=== PATIENT | male | born 1985 | race Caucasian/White ===

== ENCOUNTER 2019-11-14 10:44 | Emergency (ER) | payer BC ==
[~2019-11-14] VITALS: Ht 165.1 cm; Wt 63.5 kg
[2019-11-14 11:27] VITALS: Ht 165.1 cm; Wt 63.5 kg
[2019-11-14 12:35] VITALS: BP 136/108
== END 2019-11-14 12:35 | disposition home or self-care (01) ==
LOC: ED 10:44
DX: J02.9 Acute pharyngitis, unspecified (principal); Z20.828 Contact with and (suspected) exposure to other viral communicable diseases

== ENCOUNTER 2019-11-29 16:36 | Inpatient (IN) | payer BC ==
[~2019-11-29] VITALS: Ht 172.7 cm; Wt 63.0 kg
[2019-11-29 16:36] VITALS: Ht 172.7 cm; Wt 63.0 kg
--- NOTE | 2019-11-29 16:40 | NUR ---
PT BIB AMBULANCE WITH [facility] 4 FOR OVERDOSE ON GHB. 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 FRIEND CALLED 911 AND PT FOUND UNRESPONSIVE. PT GIVEN 6MG NARCAN BY EMS WITHOUT RESOLVE. UPON ARRIVAL EMS CLAIMS PT HAS METH USE HISTORY. BS PER EMS 124. UPON ARRIVAL TO ED PT IS NON RESPONSIVE WITH RR APPROX 40 AND VOMITING. HX OF HIV.
--- NOTE | 2019-11-29 16:42 | NUR ---
DR LAURA AT BEDSIDE FOR INTUBATION.
--- NOTE | 2019-11-29 16:45 | NUR ---
INTUBATION SUCCESFFUL. 23 CM AT LIP AND 8.0 MOSOTHO. POSITIVE COLOR CHANGE
--- NOTE | 2019-11-29 16:45 | NUR ---
ISAAC 16F INSERTED WITH CLEAR YELLOW URINE. R.T. AT BEDSIDE
--- NOTE | 2019-11-29 16:50 | NUR ---
APPLIED SOFT WRIST RESTRAINTS TO BUE'S. +PMSC BILATERALLY.
--- NOTE | 2019-11-29 17:01 | NUR ---
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 SHE SAID DUE TO POSSIBLE SELF HARM ATTEMPT TO CHECK ALCHOL TYELNOL AND MONITOR FOR ANY SIGNS OF COINGESTION. WILL ATTEMPT TO CALL VLAD BACK WITH UPDATES LATER
--- NOTE | 2019-11-29 17:05 | NUR ---
PT RETURNED FROM CT SCAN. CONNECTED TO WEED CUTTER
[2019-11-29 17:17] VITALS: BP 201/129
--- NOTE | 2019-11-29 17:23 | NUR ---
LAB AT BEDSIDE FOR BLOOD DRAW
[2019-11-29 17:30] LABS: microscopic required? NO
--- NOTE | 2019-11-29 17:46 | NUR ---
PT TOLERATING WELL CURRENT VENT SETIINGS AND SEDATION
[2019-11-29 17:48] LABS: BASOPHIL % 0.5 % (0-2); PLATELET COUNT 263 x10^3mcL (130-400)
--- NOTE | 2019-11-29 18:01 | NUR ---
PT ON GURNEY SUPINE. BED RAILS UP AND BED ON LOW POSITION. ON FULL CM AND CLOSELY MONITORING THE PT.
[2019-11-29 18:03] LABS: UA SPECIFIC GRAVITY 1.025 (1.005-1.035); urine erythrocyte NEGATIVE (NEGATIVE)
[2019-11-29 18:07] VITALS: BP 179/125
[2019-11-29 18:32] LABS: AMPHETAMINE QUAL UR POSITIVE (See below)
--- NOTE | 2019-11-29 18:36 | NUR ---
PT TOLERATING VENTILATORY AND PROPOFOL. NO SIGNS OF DISTRESS NOTED. WILL CONT TO MONITOR AND TITRATE NEEDED.
[2019-11-29 18:54] LABS: CARBON DIOXIDE 20.1 mmol/L (21-32); CHLORIDE SERUM 101 mmol/L (98-107); CREATININE SERUM 1.3 mg/dL (0.7-1.3); GFR1 > 60 mL/min; GLUCOSE SERUM 124 mg/dL (74-106); POTASSIUM SERUM 3.5 mmol/L (3.5-5.1); SODIUM SERUM 140 mmol/L (136-145)
--- NOTE | 2019-11-29 18:54 | NUR ---
600ML DRAINED FROM ISAAC. CLEAR AND YELLOW
--- NOTE | 2019-11-29 18:56 | NUR ---
PT JERKED HEAD OFF GURNEY NOTED. ATTEMPTED TO AROUSE HIM WITH VERBAL/PAINFUL STIMULI BUT NO RESPONSE. WILL TITRATE BY 10MCG/KG/MIN FOR COMFORT.
[2019-11-29 18:58] LABS: ALKALINE PHOSPHATASE 98 U/L (46-116); ALT/SGPT 21 U/L (16-63); AST/SGOT 21 U/L (15-37); BILIRUBIN TOTAL 0.2 mg/dL (0.20-1.00)
--- NOTE | 2019-11-29 19:00 | NUR ---
RECEIVED REPORT FROM ROGER HAQUE AND JOSE G HAQUE, I WILL ASSUME CARE OF PT AT THIS TIME.
--- NOTE | 2019-11-29 19:11 | NUR ---
PT NOTED WITH EYES CLOSED, PT ON VENT, ON CM, VSS. PT RECEIVING IV PROPOFOL, SEE EMAR FOR DETAILS. PT ON BILAT SOFT WRIST RESTRAINTS, SKIN INTACT, +CMS. PT INTUBATED AND OG TUBE IN PLACE. PT ON COVID-19 PRECAUTIONS, USED APPROPRIATE PPE. WILL CONTINUE TO MONITOR PT.
--- NOTE | 2019-11-29 20:02 | NUR ---
VLAD FROM POISON CONTROL CALLED TO CHECK VS AND CHANGES TO PT. SHE STATED WE CAN CALL AT ANYTIME IF WE HAVE ANY FURTHER QUESTIONS
--- NOTE | 2019-11-29 20:06 | NUR ---
NOTICED THAT PROPOFOL WAS RUNNING WITH A WEIGHT OF 130KG INSTEAD OF 60KG, CHANGED THE WEIGHT ON THE PUMP THAT WAS SET BY PREVIOUS AM RN. ISABEL OLIVO NOTIFIED WELL . STATED TO MONITOR VS. PT ON CM, VSS.
[2019-11-29 20:24] VITALS: BP 215/135
--- NOTE | 2019-11-29 20:26 | NUR ---
RT AT BEDSIDE
--- NOTE | 2019-11-29 20:30 | NUR ---
INCRESED TO 30MCG/KG/MIN ON PROPOFOL
--- NOTE | 2019-11-29 20:36 | NUR ---
PT NOTED JERKING, AND BP ELEVATED, CALLED RESIDENT RUBBER BELT SPLICER AND HE STATED HE WILL BE DOWN TO SEE THE PT SOON.
--- NOTE | 2019-11-29 20:55 | NUR ---
PT JERKING ARMS AND NOTED ATTEMPTING TO BITE TUBE, INCREASED PROPOFOL TO 40MCG/KG/MIN AT THIS TIME.
--- NOTE | 2019-11-29 20:57 | NUR ---
RESIDENT AT [facility]
--- NOTE | 2019-11-29 21:02 | NUR ---
ADVANCED OG TUBE ABOUT 10CM, RESIDENT JASMYN NOTIFIED TO ORDER NEW CHEST XRAY FOR PLACEMENT VERIFCATION.
--- NOTE | 2019-11-29 21:06 | NUR ---
PT STILL JERKING, RESIDENT NOTED PT IS "FIGHTING THE TUBE" INCREASE PROPOFOL TO 50 MCG/KG/MIN ACCORDING TO PROTOCOL, SEE EMAR FOR DETAILS. PER RESIDENT, NO NEED FOR BP MEDICATION AT THIS TIME.
--- NOTE | 2019-11-29 21:10 | NUR ---
RT AT BEDSIDE
--- NOTE | 2019-11-29 21:35 | NUR ---
SPOKE WITH AUDREY ABURTO FOR VERSED DRIP TO BEGIN PER PROTOCOL
--- NOTE | 2019-11-29 21:58 | NUR ---
BEGAN 2ND BOTTLE OF PROPOFOL, 1000MG/100ML AT 50MCG/KG/MIN WITH A WEIGHT OF 60KG.
--- NOTE | 2019-11-29 21:59 | NUR ---
PER PHARMACIST, HE WILL BE HERE WITHIN 30 MINS
[2019-11-29 22:28] VITALS: BP 135/89
--- NOTE | 2019-11-29 23:10 | NUR ---
FENTANYL 1MCG/KG/MIN BEGAN, SEE EMAR FOR TITRATION DETAILS. VERSED 1MG/HR BEGAN, SEE EMAR FRO TITRATION DETAILS.
--- NOTE | 2019-11-29 23:10 | NUR ---
FENTANYL 1MCG/KG/HR BEGAN, SEE EMAR FOR TITRATING DETAILS. VERSED 1MG/HR BEGAN, SEE EMAR FOR TITRATING DETAILS.
--- NOTE | 2019-11-29 23:25 | NUR ---
DECRESED PROPOFOL TO 45MCG/KG/MIN
--- NOTE | 2019-11-29 23:35 | NUR ---
DECREASED PROPOFOL TO 40MCG/KG/MIN
[2019-11-30] VITALS (14 sets, daily range): BP systolic 90–113; BP diastolic 54–77
[2019-11-30 00:03] LABS: MAGNESIUM 2.5 mg/dL (1.8-2.4); PHOSPHOROUS 4.8 mg/dL (2.5-4.9)
--- NOTE | 2019-11-30 00:20 | NUR ---
UPON REVIEWING MEDICATIONS, NOTICED VERSED WAS RUNNING AT 1MG/KG/HR NOT THE ORDERED DOSE OF 1MG/HR. MEDICTAION STOPPED, DR VINES MADE AWARE, PER MD VINES MONITOR VS AT THIS TIME AND HOLD VERSED MEDICATION FOR 12 HRS. PT ON CM, VSS.
--- NOTE | 2019-11-30 00:32 | NUR ---
MD VINES AT [facility] ASSESSING PT AT THIS TIME.
--- NOTE | 2019-11-30 00:46 | NUR ---
PT RESTING COMFRTABLY, ON CM, VSS. WILL CONTINUE TO MONITOR PT.
--- NOTE | 2019-11-30 01:32 | NUR ---
PT MEDICATED WITH ZOSYN PER ORDER. SEE EMAR. PT REMAINS IN SUPINE POSITION, ON FULL ARM MAKER, ON VENTILATOR.
--- NOTE | 2019-11-30 02:00 | NUR ---
DECREASED PROPOFOL TO 35MCG/KG/MIN, PT RESTING COMFORTABLY, NO S/S OF DISTRESS AT HTIS TIME.
--- NOTE | 2019-11-30 02:20 | NUR ---
DECREASED PROPOFOL TO 30MCG/KG/MIN. PT RESTING WITH NO S/S OF DISTRESS. PT CONTINUES TO BE ON CM AND VENTILATOR.
--- NOTE | 2019-11-30 02:30 | NUR ---
EMPTIED URINAL BAG, 700 ML SINCE 1899 YETSERDAY. CLEAR YELLOW.
--- NOTE | 2019-11-30 02:40 | NUR ---
DECREASED PROPOFOL TO 25MCG/KG/MIN ACCORDING TO PROTOCOL. PT TOLERATING WELL. PT ON CM, VSS. NO S/S OF DISTRESS. PT RESTING COMFORTABLY
--- NOTE | 2019-11-30 02:47 | NUR ---
NOTIFIED MD COBURN OF T 100.8, HE STATED TO CONTINUE TO MONITOR VS. NO NEW ORDERS AT THIS TIME.
--- NOTE | 2019-11-30 03:51 | NUR ---
T 100.[address]
--- NOTE | 2019-11-30 04:01 | NUR ---
PT RESTING COMFORTABLY, ON CM, VSS. ON VENTILATOR. WILL CONTINUE TO MONITOR PT.
--- NOTE | 2019-11-30 04:30 | NUR ---
FENTANYL AT 2MCG/KG/HR PROPOFOL 30MCG/KG/MIN
--- NOTE | 2019-11-30 05:12 | NUR ---
T 99.7, COOLING MEASURES STILL IN PLACE
--- NOTE | 2019-11-30 05:40 | NUR ---
DECREASED PROPOFOL TO 25MCG/KG/MIN, PT ON CM, VSS.
--- NOTE | 2019-11-30 05:50 | NUR ---
DECREASED PROPOFOL TO 2OMCG/KG/MIN, VSS. PT TOLERATING WELL AT THIS TIME.
--- NOTE | 2019-11-30 06:03 | NUR ---
PT RESTING COMFORTABLY, ON CM, VSS. FENTANYL RUNNING AT 2MCG/KG/HR AND PROPOFOL RUNNING AT 20MCG/KG/MIN AT THIS TIME. WILL CONTINYE TO MONITOR PT.
--- NOTE | 2019-11-30 06:56 | NUR ---
CALLED AND SPOKE WITH RESIDENT ANIBAL MOON T 100.3 AND HE STATED HE WILL RELAY THE MESSAGE TO RESIDENT JASMYN SINCE THERE HAVE BEEN NO ACETAMINOPHEN ORDERS. COOLING MEASURE BEGAN AGAIN.
--- NOTE | 2019-11-30 07:11 | NUR ---
REPORT GIVEN TO PENG HAQUE AND JH HAQUE, THEY WILL ASSUME CAR EOF PT AT THIS TIME.
--- NOTE | 2019-11-30 07:23 | NUR ---
PT LAYING ON GURNEY SUPINE AND ON PROPOFOL DRIP AT 20MCG/KG/HR. PT HAS ET TUBE , OPA, AND OG TUBE IN PLACE. PT TOLERATING WELL. ISAAC CATH IN PLACE WITH 400ML BROWN AND CLOUDY COLORED URINE NOTED. NAD NOTED AT THIS TIME AND SOFT WRIST RESTRAINTS ARE IN PLACE. +PMSC BILATERALLY
--- NOTE | 2019-11-30 08:08 | NUR ---
BP 86/63 AT THIS TIME. WILL DECREASE PROPOFOL BY 10MCG/KG/HR. WILL CLOSELY MONITOR FOR CHANGES IN STATUS.
--- NOTE | 2019-11-30 08:18 | NUR ---
PT DID NOT TOLERATE DECREASE IN PROPOFOL. RESUMED PROPOFOL AT PREVIOUS RATE. PT WAS MOVING AROUND IN GURNEY AND ATTEMPTING TO PULL BRING UPPER EXTREMITIES TOWARDS THE ET TUBE
--- NOTE | 2019-11-30 08:21 | NUR ---
101.8 RECTAL TEMP AT THIS TIME. WILL ATTEMPT TO CALL RESIDENT/MD FOR PLAN OF CARE. COOLING MEASURES BY REMOVING BLANKETS AND ICE PACKS IMPLEMENTED FOR THE TIME BEING.
--- NOTE | 2019-11-30 08:30 | NUR ---
PT RESTLESS. PROPOFOL INCREASED TO 20 MCG
--- NOTE | 2019-11-30 08:50 | NUR ---
PAGED RESIDENT COBURN
--- NOTE | 2019-11-30 09:05 | NUR ---
PT WAS MOVED TO A HOSPITAL BED FROM THE [facility] FOR COMFORT. PT WAS MOVED VIA DRAWSHEET WITH ASSISTANCE FROM LIDIA VELARDE AND TIMOTEO HAQUE WITHOUT INCIDENT. PT WAS TURNED TO HIS RIGHT SIDE WITH TWO PILLOWS FOR SUPPORT. PT'S BACK SKIN WAS ASSESSED WITH NO SIGNS OF SKIN BREAKDOWN. SKIN WAS DRY AND INTACT. PT'S HEAD WAS SUPPORTED WITH A ROLLED SOFT BLANKET. COOLING MEASURES WERE REIMPLEMENTED VIA ICE PACKS. WILL CONT TO CLOSELY MONITOR
--- NOTE | 2019-11-30 09:10 | NUR ---
MD ANDREWS AT BEDSIDE
--- NOTE | 2019-11-30 09:17 | NUR ---
INFORMED MD ANDREWS THAT RECTAL TEMP WAS HIGH. MD HUFF THAT SHE WILL PUT THE TYLENOL ORDER IN PLACE ON THE EMAR.
--- NOTE | 2019-11-30 09:25 | NUR ---
MD ANDREWS STS THAT HER GOAL IS TO GET PT OFF PROPOFOL DRIP AND HAVE VERSED AND FENTANYL IN PLACE OF PROPOFOL. WILL SLOWLY DECREASE PROPOFOL DRIP RATE.
--- NOTE | 2019-11-30 10:15 | NUR ---
SPOKE TO AUGUST FROM POISON CONTROL, WHO CALLED FOR AN UPDATE
--- NOTE | 2019-11-30 11:33 | NUR ---
PT LAYING IN BED SUPINE. PT IS TOLERATING WELL AND NO SIGNS OF DISTRESS NOTED. CONTINUING CLOSE MONITORING.
--- NOTE | 2019-11-30 11:56 | NUR ---
PT SHOWING SIGNS OF AGITATION IN BED. TITRATED VERSED AND FENTANYL BY 1MCG/KG PER PROTOCOL
--- NOTE | 2019-11-30 11:57 | NUR ---
PT TURNED TO THE LEFT SIDE WITH PILLOWS SUPPORTING HIS BACK WITH ASSISTANCE FROM SYD MURILLO. RT CALLED TO BEDSIDE DUE TO LOW SAT READING ON SPO2. SPO2 READING IN RIGHT EAR MUCH BETTER.
--- NOTE | 2019-11-30 12:31 | NUR ---
PROPOFOL DRIP FINISHED. TITRATED UP FENTANYL AND VERSED PER PROTOCOL.
--- NOTE | 2019-11-30 12:36 | NUR ---
CALLED ICU TO GIVE REPORT. STS THAT THEY WILL CALL ME IN 15MINS.
--- NOTE | 2019-11-30 12:40 | NUR ---
FENTANYL AND PROPOFOL TITRATED UP DUE TO INCREASED AGITATION.
--- NOTE | 2019-11-30 12:49 | NUR ---
PT TOLERATING WELL WITHOUT PROPOFOL. VERSED RUNNING AT 3MG/H. FENTANYL RUNNING AT 4MCG/KG/H. PT MOVING LEGS NOTED. PT REMAINS ON SOFT WRIST RESTRAINTS. +PMSC BILATERALLY ON UPPER EXTREMITIES
--- NOTE | 2019-11-30 13:01 | NUR ---
CALLED AGAIN FOR A REPORT F/U WITH ICU. IGNITER CAPPER STS THAT THE ROOM IS BEING CLEANED AT THE [facility] AND RN WILL CALL ME TO GIVE REPORT WHEN HE IS READY
--- NOTE | 2019-11-30 13:54 | NUR ---
REPORT GIVEN TO VITO RN TO ASSUME CARE. STS BED IS READY.
--- NOTE | 2019-11-30 14:35 | NUR ---
LATE ENTRY: RECEIVED PT FROM ED. PT IS INTUBATED AND SEDATED ON VERSED AND FENTANYL. RSS 5, SLUGGISH RESPONSE TO PAINFUL STIMULI WITH BODY WITHDRAWN. PT ON VENT PCV: FIO2 30%, PEEP 5, PRESSURE 28, RR 16. ISAAC IN PLACE, DRAINING VIA GRAVITY, DENNIS CLOUDY URINE. MARY'S IGLOO, ECCHYMOSIS NOTED ON EARLENE EXTRIMITIES. IV SITE ON RAC, LH, LAC. WILL CONTINUE PT'S CARE.
--- NOTE | 2019-11-30 17:41 | NUR ---
CALLED PT'S JAMAAL PATIÑO ([phone]). PT'S STATUS GIVEN.
[2019-11-30 18:46] LABS: PLATELET COUNT 250 x10^3mcL (130-400); RED CELL DISTRIBUTION WIDTH 13.7 % (11.5-14.5)
[2019-11-30 19:15] LABS: ALKALINE PHOSPHATASE 65 U/L (46-116); ALT/SGPT 12 U/L (16-63); AST/SGOT 14 U/L (15-37); CALCIUM 7.8 mg/dL (8.5-10.1); CARBON DIOXIDE 23.4 mmol/L (21-32); CHLORIDE SERUM 106 mmol/L (98-107); CREATININE SERUM 1.1 mg/dL (0.7-1.3); GFR1 > 60 mL/min; GLUCOSE SERUM 79 mg/dL (74-106); POTASSIUM SERUM 3.4 mmol/L (3.5-5.1); SODIUM SERUM 139 mmol/L (136-145); TOTAL PROTEIN, SERUM 6.3 g/dL (6.4-8.2)
[2019-11-30 19:21] LABS: ALBUMIN 2.5 g/dL (3.4-5.0)
--- NOTE | 2019-11-30 19:25 | NUR ---
RECEIVED PT. PT INTUBATED & SEDATED ON FENTANYL 2.5 MCG/KG/H & VERSED 8 MG/H. RSS=4. PUPILS 2MM SLUGGISH. 8.0 ETT, 28CM @LL INTACT & SECURE. NO DISCHARGE, SWELLING REDNESS. PT ON VENT PCV/AC MODE WITH SETTINGS FIO2 30%, RATE 16, PEEP 5, PS 28. PT BREATHING E/U. CRACKLES AUSCULTATED BILATERALLY. PT CONNECTED TO HEART MONITOR. HEART RHYTHM S. TACH. S1S2 AUSCULTATED. NO S/SX OF CHEST PAIN AT THIS TIME. PULSES MODERATE X4. CAP REFILL < 3 SEC. NO EDEMA PRESENT. PIV LFA, LH, RFA WNL. ABDOMEN SOFT, FLAT. BOWEL SOUNDS PRESENT X4Q. NO CURRENT N/V, BM. F/C INTACT DRAINING VIA GRAVITY TEA-COLORED URINE. WILL CONTINUE TO MONITOR.
--- NOTE | 2019-11-30 19:42 | NUR ---
ENDOSED PT'S CARE TO ONCOMING NURSE.
[2019-11-30 20:26] LABS: BAND NEUTROPHIL 5 % (0-10); METAMYELOCTE 3 % (0-2); MONOCYTE 3 % (0-7); SEGMENTED NEUTROPHILS 80 % (37-75)
[2019-11-30 20:27] LABS: PLATELET MORPHOLOGY PLATELETS NORMAL; rbc morphology (normal/abnorm) NORMAL (NORMAL)
[2019-12-01] VITALS (16 sets, daily range): BP systolic 88–137; BP diastolic 26–85
--- NOTE | 2019-12-01 | NUR ---
DECREASED FENTANYL TO 2.0 MCG/KG/H. BP 89/52(62). WILL CONTINUE TO MONITOR.
[2019-12-01 06:22] LABS: BASOPHIL % 0.3 % (0-2); PLATELET COUNT 243 x10^3mcL (130-400)
[2019-12-01 06:25] LABS: ALBUMIN 2.3 g/dL (3.4-5.0); ALKALINE PHOSPHATASE 69 U/L (46-116); ALT/SGPT 3 U/L (16-63); AST/SGOT 14 U/L (15-37); BILIRUBIN TOTAL 0.33 mg/dL (0.20-1.00); CALCIUM 8.1 mg/dL (8.5-10.1); CARBON DIOXIDE 23.6 mmol/L (21-32); CHLORIDE SERUM 106 mmol/L (98-107); CREATININE SERUM 1.2 mg/dL (0.7-1.3); GFR1 > 60 mL/min; GLUCOSE SERUM 84 mg/dL (74-106); POTASSIUM SERUM 3.6 mmol/L (3.5-5.1); SODIUM SERUM 138 mmol/L (136-145)
--- NOTE | 2019-12-01 08:20 | NUR ---
POISON CONTROL CALLED FOR FOLLOW UP ON PT. INFORMED POISON CONTROL THAT PT WAS TRANSFERRED TO ICU.
--- NOTE | 2019-12-01 09:40 | NUR ---
TUBE FEED OF VITAL INITIATED AT 10 ML/HR WITH 50 ML FWF Q4HR.
--- NOTE | 2019-12-01 16:30 | NUR ---
PATIENT WITH TEMP 100.4. ADMINISTER TYLENOL 650 MG VIA OGT FOR ELEVATED TEMP.
--- NOTE | 2019-12-01 17:35 | NUR ---
PATIENT'S TEMP 99.8. COOLING MEASURES INITIATED WITH ICE PACKS UNDER AXILLA AND BACK OF NECK.
--- NOTE | 2019-12-01 19:04 | NUR ---
SPOKE WITH PATIENT'S MOTHER AND PROVIDED PATIENT UPDATE. MOTHER CONCERNED THAT PATIENT IS NOT RECEIVING HIV MEDICATION: GENVOYA. I ASKED MOTHER IF SHE KNEW PATIENT'S DOSAGE AND SHE STATED THAT SHE DOES NOT. PATIENT'S DOCTOR WHO PRESCRIBES MEDICATIONS IS: DR COTE/ TELEPHONE . I ASKED MOTHER IF SHE COULD GET THE MEDICATIONS FROM PATIENT'S HOME AND BRING TO THE HOSPITAL WE DO NOT ALWAYS CARRY ANTI-VIRAL MEDICATIONS IN OUR PHARMACY. MOTHER STATED SHE WOULD CHECK THE PATIENT'S TRUCK.
--- NOTE | 2019-12-01 19:20 | NUR ---
RECEIVED PT. PT INTUBATED & SEDATED ON FENTANYL 1 MCG/KG/H & VERSED 6MG/H. RSS=4. PUPILS 3MM SLUGGISH. 8.0 ETT, 28 CM@LL INTACT & SECURE. NO DISCHARGE, SWELLING, REDNESS NOTED. OGT INTACT & SECURE. PT ON VENT PCV/AC MODE WITH SETTINGS FIO2 30%, RATE 16, PEEP 5, PS 28. PT BREATHING E/U. LUNG SOUNDS DIMINISHED BLL. PT CONNECTED TO LIFT MECHANIC, HEART RHYTHM NSR. S1S2 AUSCULTATED. NO S/SX OF CHEST PAIN. PULSES WEAK X4, CAP REFILL < 3 SEC. TRACE EDEMA BUE. PIV TO LFA, LH, RFA WNL. VITAL 1.2 INFUSING @30ML/H WITH 50CC FWF Q4H. F/C INTACT DRAINING VIA GRAVITY STRAW-COLORED URINE. SKIN INTACT. WILL CONTINUE TO MONITOR.
--- NOTE | 2019-12-01 22:55 | NUR ---
UPON ASSESSMENT, PT TEMPERATURE 100.5. COOLING MEASURES IMPLEMENTED & TYLENOL 650MG ADMINISTERED. WILL CONTINUE TO MONITOR.
[2019-12-02] VITALS (13 sets, daily range): BP systolic 106–143; BP diastolic 63–97
--- NOTE | 2019-12-02 05:30 | NUR ---
VERSED INCREASED TO 8MG/H TO ACHIEVE RSS 4.
--- NOTE | 2019-12-02 09:29 | NUR ---
SPOKE WITH DR FERNÁNDEZ AND REPORTED PATIENT KICKING AND ATTEMPTING TO SIT UP IN BED WITH SEDATION TITRATED DOWN. NEW ORDER RECEIVED FOR PRECEDEX. WILL CARRY OUT ORDERS.
--- NOTE | 2019-12-02 09:58 | NUR ---
PRECEDEX INITITATED AT 0.2 MCG/KG/H. WILL CONTINUE TO MONITOR.
[2019-12-02 10:18] LABS: CALCIUM 7.7 mg/dL (8.5-10.1); CHLORIDE SERUM 104 mmol/L (98-107); GFR1 > 60 mL/min; GLUCOSE SERUM 116 mg/dL (74-106); POTASSIUM SERUM 3.5 mmol/L (3.5-5.1); SODIUM SERUM 136 mmol/L (136-145)
--- NOTE | 2019-12-02 10:19 | NUR ---
REPORT GIVEN TO SULLY HAQUE. ALL QUESTIONS/CONCERNS ADDRESSED.
[2019-12-02 10:23] LABS: BASOPHIL % 0.1 % (0-2); PLATELET COUNT 254 x10^3mcL (130-400); RED CELL DISTRIBUTION WIDTH 13.7 % (11.5-14.5)
--- NOTE | 2019-12-02 12:45 | NUR ---
PATIENT'S TEMP 100.8. ADMINISTERED 650 MG TYLENOL AND INITIATED COOLING MEASURES.
--- NOTE | 2019-12-02 12:46 | NUR ---
PRECEDEX TITRATED TO 0.4 MCG/KG/HR AND VERSED TITRATED DOWN TO 4 MG/HR. PATIENT GESTURES APPROPRIATELY WHEN QUESTIONS ASKED. BECOMES RESTLESS WITH ORAL CARE BY KICKING AND ATTEMPTING TO SIT UP.
--- NOTE | 2019-12-02 18:20 | NUR ---
FIO2 INCREASED TO 40% DUE TO DESATURATION OF 89%. WILL ENDORSE CARE TO NOC SHIFT.
--- NOTE | 2019-12-02 19:15 | NUR ---
RECEIVED CHANGE OF SHIFT REPORT FROM SULLY.
--- NOTE | 2019-12-02 20:30 | NUR ---
PT IS RESTLESS AND AGITATED. TITRATED VERSED UP TO 5MG/HR
--- NOTE | 2019-12-02 20:36 | NUR ---
RIGHT FOREARM PERIPHERAL IV WAS DISCONTINUED. CATH INTACT. NO S/SX OF INFILTRATION. RFA PERIPEHRAL IV WAS NOT PATENT.
--- NOTE | 2019-12-02 21:05 | NUR ---
PT IS RESTLESS AND AGITATED. TITRATED VERSED UP TO 6MG/HR
--- NOTE | 2019-12-02 21:45 | NUR ---
PT IS RESTLESS AND AGITATED. TITRATED VERSED UP TO 7MG/HR
--- NOTE | 2019-12-02 22:00 | NUR ---
PT IS RESTLESS AND AGITATED. TITRATED FENTANYL UP TO 2MCG/KG/HR
--- NOTE | 2019-12-02 22:35 | NUR ---
T IS RESTLESS AND AGITATED. TITRATED FENTANYL UP TO 3MCG/KG/HR
[2019-12-03] VITALS (31 sets, daily range): BP systolic 90–130; BP diastolic 59–94
--- NOTE | 2019-12-03 02:20 | NUR ---
TITRATED FENTANYL DOWN TO 2MCG/KG/HR.
[2019-12-03 06:02] LABS: BASOPHIL % 0.1 % (0-2); PLATELET COUNT 268 x10^3mcL (130-400); RED CELL DISTRIBUTION WIDTH 13.5 % (11.5-14.5)
--- NOTE | 2019-12-03 06:12 | NUR ---
X-RAY AT BEDSIDE
[2019-12-03 06:16] LABS: ALBUMIN 2.2 g/dL (3.4-5.0); CHLORIDE SERUM 106 mmol/L (98-107); CREATININE SERUM 0.9 mg/dL (0.7-1.3); GFR1 > 60 mL/min; GLUCOSE SERUM 94 mg/dL (74-106); MAGNESIUM 2.1 mg/dL (1.8-2.4); PHOSPHOROUS 1.4 mg/dL (2.5-4.9); SODIUM SERUM 139 mmol/L (136-145)
--- NOTE | 2019-12-03 06:30 | NUR ---
CALLED DR. PADRON TO UPDATE REGARDING LAB RESULT. DR. PADRON STATES SHE WILL PUT NEW ORDER.
--- NOTE | 2019-12-03 07:12 | NUR ---
GIVE CHANGE OF SHIFT TO MARIE HAQUE. QUESTIONS ANSWERED AND ENDORSED CARE
--- NOTE | 2019-12-03 10:00 | NUR ---
SHABNAM GALLO TITRATED FIO2 TO 30%. PT TOLERATING WELL. WILL MONITOR
--- NOTE | 2019-12-03 12:20 | NUR ---
DR. FERNÁNDEZ PLACED PT ON CPAP 02/15. PT SWITCHED BACK TO PC AFTER 30 MIN PER SHABNAM GALLO/DERREK.
--- NOTE | 2019-12-03 12:45 | NUR ---
PATIENT ATTEMPTING TO PULL ON TUBING AND LINES. UNCOOPERATIVE WITH SEDATION OFF. PATIENT ALSO VOMITTED SEVERAL TIMES AND PASSED LARGE AMOUNT OF LOOSE STOOL. PATIENT PLACED IN UPRIGHT POSITION. ETT AND ORAL CAVITY SUCTIONED. TELEPHONED DR FERNÁNDEZ AND REPORTED. PATIENT PLACED BACK ON PRESSURE CONTROL AND SEDATION OF FENTANYL AND VERSED RESTARTED. WILL ATTEMPT TO WEAN AT FUTURE TIME.
--- NOTE | 2019-12-03 16:08 | NUR ---
1. If/when pt needs to remain intubated, recommend vital 1.2 at 55ml/hr to provide a volume of 1320ml, 1584kcal, 99g protein, and 1070ml free water meeting 100% of estimated kcal and protein needs. 2. If/when pt needs to remain intubated, recommend free fluid flush 90ml Q4H to provide additional 540ml and a grand total of 1610ml free water. 3. Recommend swallow evaluation if appropriate after extubation 4. Recommend regular diet with texture and liquid consistency suggested by swallow evaluation. Will follow up with MD the next day.
--- NOTE | 2019-12-03 16:08 | NUR ---
Initial Nutrition Assessment: ICU 6 GIGI HANNA 34M HR Dx: respiratory failure, overdose PMHx: unknown per H and P (11/28) PSHx: unknown per H and P (11/28) Labs: (12/02) K 3L, BUN 6L, ammonia 43H, H/H 11.5/35L Meds: Colace, Lactulose, potassium phosphate, precedex, protonix, sodium chloride, Sublimaze, Vancocin, Versed, Zosyn PRN meds: Ativan, Tylenol, Zofran TF: vital 1.2 at 30 ml/hr fwf 50ml Q4H via OGT TF infused: (12/02)737ml, (12/01)410ml Ht: 172.72cm/68in Wt: 62.9kg/138lbs BMI: 21.1 Bed scale: not accessible IBW: 70kg/154lbs %IBW: 89.86% UBW: unknown Age: 34 Food Allergies: unknown Edema: Trace edema noted to BUE Last BM: none noted Skin: intact Pavel: 14 I &O (12/02) 4096/3500ml = 596ml, (12/01) 2768/1275ml = 1493ml Per H and P (11/28), This is a 34-year-old Male, brought in by ambulance in altered mental status. Patient was found inside his car at a parking lot approximately 20 minutes prior to arrival. Patient's boyfriend called EMS after receiving a text from him where the patient stated he wanted to kill himself. Patient took an unknown ammount of GHB. Upon EMS arrival patient was found altered. GCS 3 with normal accu check. Patient actively vomiting. Per the boyfriend, patient has suicidal history of cutting in the past. Known HIV. Boyfriend received a text 1530 p.m. "I drank the rest of the G in the bottle and I want to end it". Boyfriend responded to the boyfriend who was in his car and altered, called 911. There were pill bottles, boyfriend did not know which pills. Patient will be Admitted in critical condition to the ICU for further management. Pt was admitted with dx: acute toxic encephalopathy, Acute hypoxic respiratory failure, suicide attempt, h/o HIV, meth use, DVT RD Note (12/02) During first visit, pt was seen agitated, and RNs were trying to calm the pt down. Per RN reassessment note (12/02), pt's tube feed was infusing at 30ml/hr, and pt had GRV=50ml. At goal rate, pt's tube feeding will provide a volume of 720ml, 864 kcal, 54g protein and 583.92ml free fluid meeting 55% estimated kcal needs and 72% of estimated protein needs. Problem with: N/V/D/C: none noted Problems with: Chewing: Swallowing: none noted Current appetite: n/a Recent wt change: unknown %wt change: unknown Height: unknown Vitamin/Supplement use: unknown Special diet at home: unknown Physical activity: unknown Nutrition education given (specify specific nutrition education and handout given): n/a Food-drug interactions? Education given? n/a Estimated Nutritional Needs Based on current body weight (63 kg) Minute ventilation: 11.6L Tmax: 37.2 Energy: 9058-9321 vs. 1851 kcal/day (25-30 kcal/kg vs. [id number] for mechanical vent) Protein: 75-95 g/day (1.2-1.5 g/kg for mechanical vent) Fluid: 6191-9435 mL/day (1 mL/kcal) Nutrition Diagnosis: 1. Inadequate energy and protein intake r/t insufficient EN infusion a/e/b pt current tube feed meeting 55% of estimated kcal needs and 72% of estimated protein needs. Intervention 1. If/when pt needs to remain intubated, recommend vital 1.2 at 55ml/hr to provide a volume of 1320ml, 1584kcal, 99g protein, and 1070ml free water meeting 100% of estimated kcal and protein needs. 2. If/when pt needs to remain intubated, recommend free fluid flush 90ml Q4H to provide additional 540ml and a grand total of 1610ml free water. 3. Recommend swallow evaluation if appropriate after extubation 4. Recommend regular diet with texture and liquid consistency suggested by swallow evaluation. Monitor/Evaluate Goal: Pt meets at least 80% of estimated needs via nutrition support Monitor: Nutrition support tolerance, Labs, GI function, Body weight F/U in 2-3 days as high risk
--- NOTE | 2019-12-03 19:30 | NUR ---
RECEIVED CHANGE OF SHIFT REPORT FROM MARIE HAQUE. PT IS INTUBATED AND SEDATED ON FENTANYL AT 1MCG/KG/HR AND VERSED AT 5MG/HR AND PRCEDEX AT 0.7MCG/KG/HR. RSS OF 4. PT RESPONDS TO TACTILE. 7.5 ETT INTACT AND SECURED, 24CM AT LL. PCV MODE: 30% FIO2, 5 PEEP, 28 IP, 16 RATE. PT SHOWING NSR ON SEATER ASSEMBLER. OGT INTACT AND SECURED INFUSING VITAL 1.2 AT 30ML/HR WITH FWF 50ML Q4H. LFA AND LH PERIPHERAL IV INTACT, PATENT, DRESSSING CDI. 0.9NS INFUSING AT 80ML/HR. ISAAC INTACT AND DRAINING VIA GRAVITY. URINE IS YELLOW AND CLEAR. PT ON BILATERAL SOFT WRIST RESTRAINTS. WILL CONTINUE TO MONITOR THE PATIENT
--- NOTE | 2019-12-03 20:15 | NUR ---
TITRATED FENTANYL UP TO 2MCG/KG/HR. PT IS RESTLESS AND AGITATED
--- NOTE | 2019-12-03 20:56 | NUR ---
TITRATED VERSED UP TO 6MG/HR. PT IS RESTLESS AND AGITATED.
--- NOTE | 2019-12-03 22:10 | NUR ---
TITRATED VERSED UP TO 7MG/HR. PT IS RESTLESS AND AGITATED.
--- NOTE | 2019-12-03 23:27 | NUR ---
HR OF 58. TITRATED FENTANYL DOWN TO 1MCG/KG/HR
[2019-12-04] VITALS (10 sets, daily range): BP systolic 102–148; BP diastolic 51–111
--- NOTE | 2019-12-04 00:23 | NUR ---
HR OF 55. TITRATED VERSED DOWN TO 6MG/HR.
--- NOTE | 2019-12-04 01:10 | NUR ---
TITRATED VERSED DOWN TO 5MG/HR.
--- NOTE | 2019-12-04 02:10 | NUR ---
TITRATED VERSED DOWN TO 4MG/HR.
--- NOTE | 2019-12-04 03:45 | NUR ---
TITRATED VERSED DOWN TO 3MG/HR
--- NOTE | 2019-12-04 04:30 | NUR ---
TITRATED VERSED DOWN TO 2MG/HR
--- NOTE | 2019-12-04 05:04 | NUR ---
HR OF 48. TITRATED FENTANYL DOWN TO 0.5MCG/KG/HR
--- NOTE | 2019-12-04 05:17 | NUR ---
DR. PADRON HAS NOT COME TO BEDSIDE. I HAVE NOT GIVEN REPORT TO DR. PADRON YET. WILL CONTINUE TO MONITOR THE PATIENT
[2019-12-04 06:31] LABS: BASOPHIL % 0.6 % (0-2); PLATELET COUNT 302 x10^3mcL (130-400); RED CELL DISTRIBUTION WIDTH 13.9 % (11.5-14.5)
[2019-12-04 06:50] LABS: CALCIUM 8.3 mg/dL (8.5-10.1); CARBON DIOXIDE 21.4 mmol/L (21-32); CHLORIDE SERUM 106 mmol/L (98-107); GFR1 > 60 mL/min; GLUCOSE SERUM 93 mg/dL (74-106); MAGNESIUM 2.1 mg/dL (1.8-2.4); PHOSPHOROUS 1.9 mg/dL (2.5-4.9); POTASSIUM SERUM 3.3 mmol/L (3.5-5.1); SODIUM SERUM 139 mmol/L (136-145)
--- NOTE | 2019-12-04 07:07 | NUR ---
GAVE CHANGE OF SHIFT REPORT TO MARIE RIOS AND ENDORSED CARE
--- NOTE | 2019-12-04 08:00 | NUR ---
RT PRESENT AT BEDSIDE. PT TRANSITIONED TO CPAP 02/15. WILL CONT TO MONITOR
--- NOTE | 2019-12-04 09:55 | NUR ---
XRAY PRESENT AT BEDSIDE
--- NOTE | 2019-12-04 10:38 | NUR ---
DR FERNÁNDEZ PRESENT AT BEDSIDE. UPDATED ON PTS CURRENT STATUS. QUESTIONS ANSWERED. RT ECKERT PRESENT AT BEDSIDE. PER DR FERNÁNDEZ, SEDATION TURNED OFF AT THIS TIME. PT THEN TRANSITIONED TO CPAP10/5. WILL CONT TO MONITOR CLOSELY
--- NOTE | 2019-12-04 11:21 | NUR ---
Patient was extubated at 11:[address] AUGUSTINE and patient is stable with S02=90% under 3 liters of nasal cannula. All sedative meds were hold and OGTUBE IS ALSO OFF. We will continue to monitor the patient for abnomal symptoms.
--- NOTE | 2019-12-04 12:01 | NUR ---
Patient is very agitated since the extubation. he also has bowel movement in which i attempted several times to clean him up. I requested nurse colleague to help me clean him. but unfortunately he was quicking us and turning aroung the bed. charge nurse is aware and was conatced about the situation .
--- NOTE | 2019-12-04 12:05 | NUR ---
DR PADRON PAGED AND NOTIFIED REGARDING PT CURRENT STATUS. DR BARNETT RETURNED CALL WITH NEW ORDERS. ORDERS TO BE CARRIED OUT. PRIMARY RN TO GIVE ATIVAN IVP FOR PT RESTLESS AND AGITATION
--- NOTE | 2019-12-04 12:15 | NUR ---
DR FERNÁNDEZ PAGED AND NOTIFIED THAT PTS HEART RATE IS SUSTAINED IN 140'S AND PTS SPO2 70-80'S. PT RESTLESS AND MAXED OUT ON PROPROFOL/FENTANYL/VERSED. PER DR FERNÁNDEZ, INTITATE NORCURON DRIP AND COMPLETE TRAIN OF FOUR Q4H. PRIMARY RN NOTIFIED AND MADE AWARE
--- NOTE | 2019-12-04 13:34 | NUR ---
Patient is very violent and he kicke my dace when trying to stabilize him. He removed all devices and IV LINES. We attempted several timesto perform IV insertion but he never cooperated. SPITTING UP TO NURSES face and continue to the violent patient. The charge nurse is aware and patient need to be urgently 51/50 because the likely of suicidal is very strong propabilty.
--- NOTE | 2019-12-04 14:26 | NUR ---
PATIENT NONCOMPLIANT, KEEPS REMOVING ALL OF MONITOR EQUIPMENT. PT RESTLESS AND AGITATED. DR PADRON AWARE THAT PT REMOVED BOTH IVS' ATIVAN CHANGED TO IM AT THIS TIME. WILL CONT TO MONITOR
--- NOTE | 2019-12-04 15:40 | NUR ---
ATTEMPTED TO PERFORM BEDSIDE SWALLOW EVAL. WHEN GIVEN A SMALL AMOUNT OF WATER, PT STARTED COUGHING AND SPITTING IT UP. PT UNABLE TO SWALLOW AT THIS TIME. PRIMARY RN NOTIFIED AND MADE AWARE. WILL REATTEMPT LATER
--- NOTE | 2019-12-04 15:47 | NUR ---
DR PADRON NOTIFIED AND MADE AWARE THAT PT CURRENTLY HAS NO IV ACCESS AND PT HAS IV ANTIBIOTICS VANCO AND ZOSYN DUE. PT RESTLESS AND AGITATED/CONFUSED. REFUSING NEW IV ACCESS AT THIS TIME. AWAITING NEW ORDERS AT THIS TIME.
--- NOTE | 2019-12-04 16:59 | NUR ---
Nutrition note: Pt was seen extubated today. Please disregard tube feeding recommendation. 1. Recommend swallow evaluation if appropriate. 2. Recommend regular diet with texture and liquid consistency recommended by swallow evaluation.
--- NOTE | 2019-12-04 19:20 | NUR ---
RECEIVED PT. PT AAOX1 TO PERSON. PT EXTREMELY AGITATED, FREQUENTLY SPITTING ON STAFF. PT IN 4-POINT RESTRAINTS. PT ON ROOM AIR, BREATHING E/U. PT CONNECTED TO DATA VISUALIZATION DEVELOPER. HEART RHYTHM IS S. TACH. PIV L WRIST INTACT. NS INFUSING @40ML/H. POTASSIUM PHOSPHATE INFUSING @43ML/H. WILL CONTINUE TO MONITOR.
--- NOTE | 2019-12-04 19:49 | NUR ---
ADMINISTERED 1MG ATIVAN FOR INCREASED AGITATION. WILL CONTINUE TO MONITOR.
--- NOTE | 2019-12-04 23:40 | NUR ---
PT CONTINUES TO BE AGITATED, RESTLESS, REMOVING RESTRAINTS AND SPITTING AT STAFF. ATIVAN 1MG CHANGED TO Q2H. PT IN NO ACUTE SIGNS OF DISTRESS. WILL CONTINUE TO MONITOR. VSS T 98.2 HR 95, O2 98%, RR 31, BP 139/111(120). WILL
[2019-12-05 03:05] VITALS: BP 162/78
--- NOTE | 2019-12-05 03:07 | NUR ---
PT REMAINS AGITATED, ATTEMPTING TO REMOVE RESTRAINTS, & REMOVING LINES. PT EXHIBITS ELEVATED BP MOST LIKELY DUE TO AGITATION. PT MAKES NON-SENSICAL STATEMENTS. VS T 97.6, HR 96, BP 162/78(95), RR 28, O2 97%. WILL CONTINUE TO MONITOR.
--- NOTE | 2019-12-05 05:36 | NUR ---
PT CLEANED. GOWN, LINEN, CHUCKS CHANGED. PT HAD MEDIUM-SIZED BM. BED PLACED IN LOW POSITION, CALL LIGHT WITHIN REACH.
[2019-12-05 06:06] LABS: BASOPHIL % 0.3 % (0-2); PLATELET COUNT 374 x10^3mcL (130-400); RED CELL DISTRIBUTION WIDTH 13.4 % (11.5-14.5)
[2019-12-05 06:12] LABS: CALCIUM 8.7 mg/dL (8.5-10.1); CARBON DIOXIDE 22.9 mmol/L (21-32); CHLORIDE SERUM 100 mmol/L (98-107); CREATININE SERUM 0.9 mg/dL (0.7-1.3); GFR1 > 60 mL/min; GLUCOSE SERUM 87 mg/dL (74-106); MAGNESIUM 2.1 mg/dL (1.8-2.4); PHOSPHOROUS 3.1 mg/dL (2.5-4.9); POTASSIUM SERUM 3.2 mmol/L (3.5-5.1); SODIUM SERUM 135 mmol/L (136-145)
[2019-12-05 06:14] LABS: ALBUMIN 2.7 g/dL (3.4-5.0)
--- NOTE | 2019-12-05 06:39 | NUR ---
NOTIFIED DR. LYON REGARDING ABNORMAL LAB VALUES NA 135, K 3.2. WILL CONTINUE TO MONITOR.
--- NOTE | 2019-12-05 07:31 | NUR ---
REPORT GIVEN TO ALLISON HAQUE. ALL QUESTIONS/CONCERNS ANSWERED.
--- NOTE | 2019-12-05 09:00 | NUR ---
RECEIVED PT FROM ICU. ASSESSMENT LIMITED TO DUE TO ALOC, PT LETHARGIC, RESPONDS TO TACTILE STIMULUS, NOT RESPONDING VERBALLY AT THIS TIME, PUPILS 2MM W/ SLUGGISH REPSONSE. ON TELE 32 SHOWING SR, S1 AND S2 WNL. RESP E/U ON RA, EQUAL CHEST RISE, LUNGS CTA. IV TO L WRIST PATENT/INTACT, WNL. SKIN WARM/DRY/INTACT, MOD PALPABLE PULSES X4, NO EDEMA NOTED. BED IN LOWEST POSITION, CALL LIGHT WITHIN REACH, SITTER AT BEDSIDE. WILL CONTINUE TO MONITOR.
[2019-12-05 09:03] VITALS: BP 162/78
--- NOTE | 2019-12-05 09:29 | NUR ---
PT DROWSY BUT COOPERATIVE THIS A.M., ATE 100% OF BREAKFAST/ZERO DYSPHAGIA BUT INCONTINENT OF STOOL, DID ATTEMPT TO GET TO COMMODE BUT TOO LATE/PT IS CONTINENT OF URINE/IS IMPULSIVE THOUGH/REPORT GIVEN TO CATHI/COURTNEY BY WHEELCHAIR//MW
--- NOTE | 2019-12-05 11:37 | NUR ---
[facility] received pt packet via fax. Will begin looking for placement at this time.
--- NOTE | 2019-12-05 11:55 | NUR ---
Left for REFINERY TECHNICIAN for a call back regarding clearance for placement
--- NOTE | 2019-12-05 12:01 | NUR ---
PT RESTING IN BED, STILL APPEARS LETHARGIC BUT RESPONDS TO TACTILE STIMULUS, RESP E/U ON RA. NO ACUTE DISTRES SNOTED. BED IN LOWEST POSITION, CALL LIGHT WITHIN REACH, SITTER AT BEDSIDE. WILL CONTINUE TO MONITOR.
[2019-12-05 13:35] VITALS: BP 116/79
--- NOTE | 2019-12-05 14:26 | NUR ---
[facility] So [facility]
--- NOTE | 2019-12-05 14:47 | NUR ---
[facility] s/w Ernestine, not able to medically accommodate at this time
--- NOTE | 2019-12-05 15:36 | NUR ---
PHYSICAL THERAPY NOTE PATIENT REFUSED PHYSICAL THERAPY EVAL
--- NOTE | 2019-12-05 16:03 | NUR ---
Packet faxed to Duran [facility] Shaunna [facility]
--- NOTE | 2019-12-05 18:20 | NUR ---
PT RESTING IN BED, LETHARGIC, SPEECH GARBLED, RESP E/U ON RA. BEDSIDE VS BEING DONE BY SITTER, PT CALM/COOPERATIVE, NO ACUTE DISTRESS NOTED. IV TO L HAND PATENT/INTACT, WNL. BED IN LOWEST POSITION AND CALL LIGHT WITHIN REACH. SITTER AT BEDSIDE. CARE ENDORSED TO SHABNAM RESENDEZ.
[2019-12-05 18:35] VITALS: BP 109/71
--- NOTE | 2019-12-05 19:20 | NUR ---
CARE ASSUMED FROM OUTGOING RN. PT RESTING COMFORTABLY IN BED. NO ACUTE DISTRESS NOTED. SITTER AT BEDSIDE. AWAKE, ABLE TO RESPOND IN A SLOW SOFT MANNER, ABLE TO FOLLOW SIMPLE COMMANDS. EVEN AND UNLABORED RESPIRATIONS ON RA. WILL REAPPLY RADIOLOGY ADMINISTRATOR, WAS READING ST. IV PATENT AND INTACT RUNNING IVF PER EMAR. NO C/O PAIN OR SOB. BED IN LOWEST POSITION. SIDE RAILS UPX2. CALL LIGHT WITHIN REACH. WILL CONTINUE TO MONITOR.
[2019-12-05 19:25] VITALS: BP 106/61
--- NOTE | 2019-12-05 20:47 | NUR ---
Followed up with the designated facilities. They still have no beds available. Call in the AM for any discharges
--- NOTE | 2019-12-06 01:04 | NUR ---
PT RESTING COMFORTABLY IN BED. SITTER AT BEDSIDE. NO ACUTE DISTRESS NOTED. EVEN AND UNLABORED RESPIRATIONS ON RA. ON TELE# [address] 106. IVF RUNNING PER EMAR. CALM AND COOPERATIVE AT THIS TIME. BED IN LOWEST POSITION. SIDE RAILS UPX2. CALL LIGHT WITHIN REACH. WILL CONTINUE TO MONITOR.
[2019-12-06 04:59] VITALS: BP 114/74
--- NOTE | 2019-12-06 06:32 | NUR ---
PT RESTED COMFORTABLY IN INTERVALS THROUGHOUT THE SHIFT. ALL NEEDS TENDED TO AND MET. EVEN AND UNLABORED RESPIRATIONS ON RA. ON TELE# [address] SITTER AT BEDSIDE. CALM AND COOPERATIVE AT THIS TIME. BED IN LOWEST POSITION. SIDE RAILS UPX2. CALL LIGHT WITHIN REACH. WILL ENDORSE TO ONCOMING SHIFT.
[2019-12-06 06:49] LABS: CALCIUM 8.6 mg/dL (8.5-10.1); CARBON DIOXIDE 25.2 mmol/L (21-32); CHLORIDE SERUM 104 mmol/L (98-107); CREATININE SERUM 1.1 mg/dL (0.7-1.3); GFR1 > 60 mL/min; GLUCOSE SERUM 91 mg/dL (74-106); MAGNESIUM 2.2 mg/dL (1.8-2.4); PHOSPHOROUS 3.1 mg/dL (2.5-4.9); POTASSIUM SERUM 3.6 mmol/L (3.5-5.1); SODIUM SERUM 139 mmol/L (136-145)
--- NOTE | 2019-12-06 07:10 | NUR ---
RECEIVED PT FROM WHITE LEAD GRINDER NURSE. PT IN BED SLEEPING, AROUSABLE, RESP E/U ON RA. NO ACUTE DISTRESS NOTED. ON TELE 32 SHOWING SR, HR: 91. IV TO L HAND W/ NO SIGNS OF INFILTRATION, IVF INFUSING WELL. BED IN LOWEST POSITION AND CALL LIGHT WITHIN REACH. SITTER AT BEDSIDE. WILL CONTINUE TO MONITOR.
[2019-12-06 07:45] LABS: BASOPHIL % 0.3 % (0-2); RED CELL DISTRIBUTION WIDTH 13.6 % (11.5-14.5)
[2019-12-06 07:46] LABS: PLATELET COUNT 413 x10^3mcL (130-400)
[2019-12-06 08:06] VITALS: BP 127/64
[2019-12-06 12:17] VITALS: BP 115/77
--- NOTE | 2019-12-06 12:25 | NUR ---
PT RESTING IN BED, AXO2, RESP E/U ON RA. CALM AT THIS TIME, NO ACUTE DISTRESS NOTED. BED IN LOWEST POSITION AND CALL LIGHT WITHIN REACH. SITTER AT BEDSIDE. WILL CONTINUE TO MONITOR.
--- NOTE | 2019-12-06 13:32 | NUR ---
Follow Up Nutrition Assessment: 235B GIGI HANNA 32M HR Dx: respiratory failure, overdose PMHx: HIV, drug use PSHx: unknown per H and P (11/28) Labs: (12/04): albumin: 2.7L, (12/05) Hct: 41L Meds: Colace, Lactulose, hydralazine HCL, levaquin, potassium phosphate, protonix, Seroquel, Ativan, Tylenol, Zofran, morphine, Genvoya tablet Diet: regular PO intake: 60% x 4 meals Wt: (12/05) 139.1 lbs Edema: none noted Last BM: 12/06/2019, GI: pt C/O loose and frequent stools Skin: ecchymosis to BLE, CARDIAC TECH Pavel: 16 RD Note (12/05): Per progress note acute toxic encephalopathy 2/2 GHB overdose (resolved), Acute Hypoxic respiratory failure 2/2 drug overdose VS COVID (resolved), extubated 12/04/19 at 1104 am, negative COVID-19 on 11/29/19, pending COVID test 12/06/19, 5150 hold for DTS, 1:1 sitter recommended, pt recommended to be transferred to inpatient psychiatry once medically cleared Note: "Texture and liquid consistency recommended by kvng ramos" in the comments section under the pt's diet order. Estimated intake: 1620 kcals, 73 g protein - meeting 85% of energy and 100% of protein needs. Pt reported good PO intake and no constipation or diarrhea. Estimated Nutritional Needs Based on current body weight (63 kg) (Changed from prior assessment d/t pt extubated) Energy: 9044-2687 kcal/day (30-35 kcal/kg for HIV) Protein: 63-95 g/day (1-1.5 g/kg for HIV) Fluid: 2808-1093 mL/day (30-35 mL/kg) Nutrition Diagnosis: 1. Increased nutrient needs (energy, protein) related to increased metabolic demands as evidenced by HIV diagnosis Intervention 1. Continue regular diet, recommend texture and liquid consistency recommended by [employer] Monitor/Evaluate Goal: Pt meets at least 75% of estimated nutrition needs via PO diet (ongoing, met) Monitor: PO intake, Labs, GI function, Body weight F/U in 3-5 days as moderate risk 12/08-
--- NOTE | 2019-12-06 13:35 | NUR ---
1. Continue regular diet, recommend texture and liquid consistency recommended by INVENTORY MANAGER
--- NOTE | 2019-12-06 16:38 | NUR ---
No beds at the following facilities: [facility]
--- NOTE | 2019-12-06 16:40 | NUR ---
Will continue to attempt to locate psych placement for pt
--- NOTE | 2019-12-06 18:11 | NUR ---
P.T. NOTES P.T. EVAL COMPLETED; AMBULATORY WITHOUT ASST DEVICE; NURSE SITTER IN ROOM; ENDORSED TO NURSING.
[2019-12-06 19:06] VITALS: BP 130/95
--- NOTE | 2019-12-06 19:20 | NUR ---
PT IN BED SLEEPING, AROUSABLE, RESP E/U ON RA. NO ACUTE DISTRESS NOTED. IV TO RFA PATENT/INTACT WNL. BED IN LOWEST POSITION , CALL LIGHT WITHIN REACH, SITTER AT BEDSIDE. ENDORSED CARE TO SHABNAM WOO.
--- NOTE | 2019-12-06 19:59 | NUR ---
PT RESTING COMFORTABLY IN BED W/ HOB ELEVATED. RR EVEN AND UNLABORED ON RA, CHEST RISING EQUALLY. TELE #32 ST. NO SIGNS OF ACUTE CHANGE OR DISTRESS NOTED. IV RFA WNL. BED IN LOWEEST POSITION, SIDE RAILS UP X2, AND CALL LIGHT WITHIN REACH. SITTER AT BEDSIDE.
[2019-12-06 21:29] VITALS: BP 130/86
--- NOTE | 2019-12-06 21:50 | NUR ---
Change of shift report given. Continuing to monitor and assess for bed placement and will keep facility updated with any information
--- NOTE | 2019-12-07 00:23 | NUR ---
PT RESTING COMFORTABLY IN BED, EASILY AROUSABLE. RR EVEN AND UNLABORED ON RA, CHEST RISING EQUALLY. TELE #32 NSR. NO SIGNS OF ACUTE CHANGE OR DISTRESS NOTED. IV RFA WNL, SALINE LOCKED. BED IN LOWEST POSITION, SIDE RAILS UP X2, AND CALL LIGHT WITHIN REACH. SITTER AT BEDSIDE. WILL CONTINUE TO MONITOR.
[2019-12-07 05:25] VITALS: BP 137/96
--- NOTE | 2019-12-07 06:13 | NUR ---
DR. PADRON UPDATED ON PT'S CONDITION. NO NEW ORDERS AT THE MOMENT, WILL CONTINUE TO MONITOR.
--- NOTE | 2019-12-07 06:20 | NUR ---
PT RESTING COMFORTABLY IN 32, EASILY AROUSABLE. RR EVEN AND UNLABORED ON RA, CHEST RISING EQUALLY. TELE #32 NSR. IV RH WNL, SALINE LOCKED. NO SIGNS OF ACUTE CHANGE OR DISTRESS NOTED THROUGH THE SHIFT. ALL NEEDS MET THROUGH THE SHIFT. BED IN LOWEST POSITION, SIDE RAILS UP X2, AND CALL LIGHT WITHIN REACH. SITTER AT BEDSIDE. WILL ENDORSE CARE TO ONCOMING SHIFT NURSE, AND WILL CONTINUE TO MONITOR.
[2019-12-07 07:30] VITALS: BP 119/81
[2019-12-07 07:41] LABS: BASOPHIL % 0.4 % (0-2); RED CELL DISTRIBUTION WIDTH 13.9 % (11.5-14.5)
--- NOTE | 2019-12-07 08:03 | NUR ---
RECEIVED PT FROM PM NURSE. PT AWAKE AND RESTING COMFORTABLY IN BED AT THIS TIME. NO FACIAL DISTRESS OR SOB NOTED. ABLE TO MAKE NEEDS KNOWN. PT IS A/OX4. LUNG SOUNDS CTA. BREATHING E/U ON RA. TELE #32. DENIES CP/PRESSURE. PULSES EVEN AND PALPABLE. NO EDEMA NOTED. ACTIVE BS X4. ABD SOFT AND NON DISTENDED. DENIES N/V/D. VOIDS FREELY. BRP. ECCHYMOSIS NOTED BLE. NO C/O PAIN AT THIS TIME. IV TO RH. SL. INTACT AND PATENT. FLUSHES WITH NO DIFFICULTY. BED AT THE LOWEST POSITION. CALL BUTTON WITHIN REACH. WILL CONTINUE TO MONITOR.
[2019-12-07 08:32] LABS: ALKALINE PHOSPHATASE 77 U/L (46-116); ALT/SGPT 38 U/L (16-63); AST/SGOT 19 U/L (15-37); BILIRUBIN TOTAL 0.2 mg/dL (0.20-1.00); CARBON DIOXIDE 23.3 mmol/L (21-32); CHLORIDE SERUM 101 mmol/L (98-107); GFR1 > 60 mL/min; GLUCOSE SERUM 105 mg/dL (74-106); POTASSIUM SERUM 4.3 mmol/L (3.5-5.1); SODIUM SERUM 136 mmol/L (136-145); TOTAL PROTEIN, SERUM 8.2 g/dL (6.4-8.2)
[2019-12-07 08:35] LABS: ALBUMIN 2.9 g/dL (3.4-5.0)
[2019-12-07 09:16] LABS: PLATELET COUNT 502 x10^3mcL (130-400)
[2019-12-07 13:00] VITALS: BP 112/77
[2019-12-07 16:41] VITALS: BP 135/87
--- NOTE | 2019-12-07 17:39 | NUR ---
Throughout the day there has been no bed availability. However calling to assess status I have refaxed this afternoon to be on radar for morning discharges the following facilities have been refaxed the intake information for review. [facility] All are expecting some discharges in AM and are reviewing information. Will keep facility informed of any updates
--- NOTE | 2019-12-07 19:06 | NUR ---
Rocio from [facility] called for information. Called facility nurse is in report for shift change they asked for Rocio to call back in 30 minutes for information.
--- NOTE | 2019-12-07 19:30 | NUR ---
RECEIVED PT FROM AM NURSE. PT AAOX4, ABLE TO FOLLOW COMMAND AND MAKE NEEDS KNOWN. MED-SURG, DENIES CP/PRESSURE AT THIS TIME. PALPABLE PULSES TO ALL EXTREMETIES. NO EDEMA NOTED. LUNG SOUNDS CTA, BREATHING EVEN AND UNLABORED ON RA. NO SOB NOTED. ABD SOFT AND NONDISTENDED, ACTIVE BS X4 QUAD. DENIES N/V/D. VOIDS FREELY, BRP. ECHYMOSIS TO BLE NOTED. IV TO RH PATENT AND INTACT. PT DENIES ANY SUICIDAL IDEATION. NO ACUTE DISTRESS NOTED. BED AT LOWEST SETTING. SIDE RAILS X2 UP. CALL LIGHT WITHING REACH. SITTER AT BEDSIDE. WILL CONT TO MONITOR.
--- NOTE | 2019-12-07 19:34 | NUR ---
ENDORSED CARE TO PM NURSE FOR CONTINUITY OF CARE. ALL QUESTIONS/CONCERNS ANSWERED.
--- NOTE | 2019-12-07 19:52 | NUR ---
RECEIVED A CALLED FROM [facility] REGARDING PLACEMENT FOR PT. STATED THAT THEY CANNOT TAKE PT AT THIS TIME SINCE HOLD WILL BE TOMORROW. IN ORDER TO TAKE PT, HOLD NEEDS TO BE RENEWED. SPOKE TO DR MISTRY AND RECOMMENDED TO RENEW HOLD. PER DR MISTRY SHE WILL TALK TO DR BEAN. WILL FOLLOW UP WITH JIMMY SAVAGE ONCE WE GET ORDERS.
--- NOTE | 2019-12-07 20:09 | NUR ---
PER DR BEAN, HE MESSAGED DR YOO TO SEE IF HE IS ABLE TO RENEW HOLD. WAITING FOR CALL BACK.
[2019-12-07 20:13] VITALS: BP 121/83
--- NOTE | 2019-12-07 21:17 | NUR ---
PT C/O ANXIETY, MEDICATED WITH PRN ATIVAN PER MAR. NO ACUTE DISTRESS NOTED. WILL CONT TO MONITOR.
--- NOTE | 2019-12-07 23:49 | NUR ---
REPORT GIVEN TO MAL HAQUE FOR CONTINUITY OF CARE. ALL QUESTIONS AND CONCERNS ADDRESSED.
--- NOTE | 2019-12-07 23:51 | NUR ---
CARE ASSUMED FROM SHABNAM RUIZ. PT RESTING COMFORTABLY IN BED. SITTER AT BEDSIDE. NO ACUTE DISTRESS NOTED. EVEN AND UNLABORED RESPIRATIONS ON RA. MEDSURG PT. IVL INTACT. BED IN LOWEST POSITION. SIDE RAILS UPX2. CALL LIGHT WITHIN REACH. WILL CONTINUE TO MONITOR.
--- NOTE | 2019-12-08 04:43 | NUR ---
Late entry 00:02 There are no vacancy at any of the designated facilities , Call Center will continue to look for placement.
[2019-12-08 05:59] VITALS: BP 106/72
--- NOTE | 2019-12-08 06:46 | NUR ---
PT RESTED COMFORTABLY IN INTERVALS THROUGHOUT THE SHIFT. ALL NEEDS TENDED TO AND MET. EVEN AND UNLABORED RESPIRATOINS ON RA. SITTER AT BEDSIDE FOR SAFETY. NO C/O PAIN OR SOB. BED IN LOWEST POSITION. SIDE RAILS UPX2. CALL LIGHT WITHIN REACH. WILL ENDORSE TO ONCOMING SHIFT.
[2019-12-08 08:52] VITALS: BP 129/91
--- NOTE | 2019-12-08 09:56 | NUR ---
Received call from Beth from [facility], " not able to accommodate patient due to insurance not being covered thru their facility"
--- NOTE | 2019-12-08 10:11 | NUR ---
Left message for ROBINSON Perez for a call back regarding [phone] .
--- NOTE | 2019-12-08 14:20 | NUR ---
Packet faxed to [facility]. S/W [place]
--- NOTE | 2019-12-08 14:36 | NUR ---
S/W Ana [facility]ERS. Still waiting on new [phone].
--- NOTE | 2019-12-08 14:43 | NUR ---
[facility] s/w [facility] no beds [facility]ord[facility] s/w [facility] no beds but is taking packet for wait list. Packet faxed
--- NOTE | 2019-12-08 14:51 | NUR ---
[facility] s/w Amie at capacity
[2019-12-08 17:17] VITALS: BP 133/99
--- NOTE | 2019-12-08 17:17 | NUR ---
[facility] reviewing packet
--- NOTE | 2019-12-08 17:51 | NUR ---
Patient has been accepted at [facility] under Dr. Anita Traylor
--- NOTE | 2019-12-08 18:03 | NUR ---
S/W Kecia, patients nurse. Aware of accetance to [facility]
--- NOTE | 2019-12-08 18:57 | NUR ---
Nurse received a phone call from [facility] [phone] pt been accepted to the facility for transition of care. Nurse was informed pt can come anytime that he want preferrably before midnight but can still come after midnight. Nurse made pt aware and he agreed to be discharge to [facility]. Pt has no discharge orders at this time. Charge nurse and the doctors currently in code blue. Will endorse care to incoming shift RN.
--- NOTE | 2019-12-08 20:00 | NUR ---
PT A/A/O X4. DENIES DIZZINESS AND HEADACHE. PT DENIES THINKING OF SUICIDE WHEN ASKED. BREATH SOUNDS CLEAR. BREATHING EVEN AND UNLABORED ON ROOM AIR, SPO2 100%. DENIES CHEST PAIN AND PRESSURE. BOWEL SOUNDS ACTIVE. NO C/O N/V AND ABD PAIN. IV INTACT ON THE RIGHT FOREARM. MADE PT COMFORTABLE. PLACED CALL LIGHT WITH IN REACH. WILL CONTINUE TO MONITOR.
[2019-12-08 20:51] VITALS: BP 122/81
[2019-12-08 21:41] VITALS: BP 122/81
[2019-12-08] MEDS ORDERED: SEROQUEL25 MG PO (21:41)
[2019-12-08] MEDS ORDERED: LEVAQUIN750 MG PO (21:41)
--- NOTE | 2019-12-08 21:45 | NUR ---
PT DENIES PAIN, DISCOMFORT AND SUICIDE IDEATION THUS FAR. IV TAKEN OFF PATIENTS RIGHT FOREARM. PT TOLERATED IT WELL. PT TRANSFERRED VIA GURNEY ACCOMPANIED BY THE MEDICAL TRANPORT TO [facility].
== END 2019-12-08 21:45 | DRG 974 ==
LOC: ED 16:36 → IC 20:26 → DU 12-05 09:57 → MU 12-07 12:46
PROVIDERS: Student in an Organized Health Care Education/Training Program; ADMIT Internal Medicine; ATTEND Internal Medicine
PROC: 5A1955Z Respiratory Ventilation, Greater than 96 Consecutive Hours (ICD-10-PCS; principal; 2019-11-30)
PROC: 0BH17EZ Insertion of Endotracheal Airway into Trachea, Via Natural or Artificial Opening (ICD-10-PCS; 2019-11-30)
DX: A41.9 Sepsis, unspecified organism (principal); G92 Toxic encephalopathy; B20 Human immunodeficiency virus [HIV] disease; J96.01 Acute respiratory failure with hypoxia; J69.0 Pneumonitis due to inhalation of food and vomit; F33.2 Major depressive disorder, recurrent severe without psychotic features; T41.291A Poisoning by other general anesthetics, accidental (unintentional), initial encounter; Z20.828 Contact with and (suspected) exposure to other viral communicable diseases; F41.9 Anxiety disorder, unspecified; F15.10 Other stimulant abuse, uncomplicated; Z78.1 Physical restraint status; Z91.5 Personal history of self-harm; Y92.89 Other specified places as the place of occurrence of the external cause; Z71.51 Drug abuse counseling and surveillance of drug abuser; Z79.899 Other long term (current) drug therapy
CPT/HCPCS: 36600; 82962; A4628; C9113; G0378; G0480; J0696; J2060; J2250; J2270; J2405; J2543; J2704; J3010; J3370; J3490; J7030; J7050; J7060; Q0092; U0003-CS